=== PATIENT | male | born 1975 | race Hispanic/Latino ===

== ENCOUNTER → 2021-10-11 | Outpatient (CLI) | payer BC | END | disposition home or self-care (01) | LOC: SLP 20:10 → EDBD 20:30 | PROVIDERS: ATTEND Family Medicine | DX: G47.33 Obstructive sleep apnea (adult) (pediatric) (principal); I10 Essential (primary) hypertension; M54.2 Cervicalgia; M54.9 Dorsalgia, unspecified; G44.89 Other headache syndrome; R35.1 Nocturia; R53.83 Other fatigue | CPT/HCPCS: 95810 ==